=== PATIENT | female | born 1940 | race Caucasian/White ===

== ENCOUNTER 2016-11-01 18:09 | Inpatient (IN) | payer MEDICARE ==
[~2016-11-01] VITALS: Ht 154.9 cm; Wt 61.6 kg
[2016-11-01] MEDS ORDERED: FUROSEMIDE 40 MG/4 ML VIAL (J1940) IV ONE (18:30)
[2016-11-01] MEDS ORDERED: INDA125TA PO (18:40)
[2016-11-01] MEDS ORDERED: LOSA100T36 PO (18:40)
[2016-11-01] MEDS ORDERED: ATEN50TA2 PO (18:40)
[2016-11-01] MEDS ORDERED: DOXY-278 PO (18:43)
[2016-11-01] MEDS ORDERED: LASI40TA PO (18:43)
[2016-11-01] MEDS ORDERED: SIMV40TA2 PO (18:43)
[2016-11-01] MEDS: METOPROLOL 5 MG/5 ML VIAL IV SCH ×2 (18:54→19:35)
[2016-11-01] MEDS ORDERED: METOPROLOL TART 25 MG TABLET PO ONE (19:00)
[2016-11-01 19:31] LABS: ABG BASE EXCESS -7.7 (-2.0-2.0); ABG HCO3 17.8 MEQ/L (22.0-26.0); ABG PARTIAL PRESSURE CO2 36.7 mmHg (35.0-45.0); ABG PARTIAL PRESSURE O2 87.5 mmHg (75.0-100.0); ABG STANDARD HCO3 18.4 MEQ/L (22.0-26.0); ABG TOTAL CO2 18.9 MEQ/L (23.0-31.0); ABG pH (ARTERIAL) 7.303 UNITS (7.350-7.450)
[2016-11-01 19:59] LABS: DIFF SLIDE NUMBER 131; MEAN CORPUSCULAR HEMOGLOBIN 31.4 pg (27.0-33.0); MEAN CORPUSCULAR HGB CONC 30.7 g/dl (32.0-36.5); RED CELL DISTRIBUTION WIDTH 15.7 % (11.5-14.5)
[2016-11-01 20:06] LABS: INR 2.9
[2016-11-01 20:20] LABS: ALBUMIN 3.4 GM/DL (3.2-5.2); ALBUMIN/GLOBULIN RATIO 1.1 (1.00-1.93); BILIRUBIN,DIRECT 1.9 MG/DL (0.0-0.2); BILIRUBIN,TOTAL 2.9 MG/DL (0.2-1.0); CREATININE FOR GFR 2.23 MG/DL (0.55-1.02); GLOMERULAR FILTRATION RATE 22.7 (>39); TOTAL PROTEIN 6.5 GM/DL (6.4-8.2)
[2016-11-01 20:32] LABS: FREE T4 1.53 NG/DL (0.76-1.46)
--- NOTE | 2016-11-01 21:10 | REPUSA ---
CT of the head Clinical history: Altered mental status. Protocol: Multiple axial CT images obtained with 5 mm slice thickness were obtained through the head without administration of contrast. Findings: The ventricles and sulci are symmetric but prominent in size bilaterally. There are periven tricular areas of low attenuation throughout the deep white matter. There is no evidence of acute hem orrhage or infarct. There is no midline shift, mass effect, or extra-axial fluid collection. The osse ous structures are unremarkable. The visualized paranasal sinuses and mastoid air cells are clear. Impression: No acute hemorrhage or infarct. Findings are consistent with age-related atrophy and transit operator jacque small vessel ischemic disease.
--- NOTE | 2016-11-01 21:10 | REPUSA ---
CT of the chest without contrast Clinical statement: Shortness of breath. Technique: Multiple axial CT images were obtained with 5 mm cuts through the chest without administra tion of contrast. Coronal and sagittal reconstructions were also obtained. No comparison is available. Findings: There is no thoracic lymphadenopathy. The visualized portions of the thyroid gland is unrem arkable. There is a small pericardial effusion.. The heart is enlarged. There is a small right-sided pleural effusion with right lower lobe infiltrate. There is a trace left-sided pleural effusion. The re are infiltrates in the lingula of the left lung and superior segment of the left lower lobe. Limit ed imaging of the upper abdomen does not demonstrate any acute abnormalities. There are no suspicious osseous lesions. Impression: 1. Cardiomegaly with small pericardial effusion. 2. Small right lower lobe pleural effusion with right lower lobe infiltrate. 3. Infiltrates in the lingula of the left lung and the left lower lobe. Trace left-sided pleural effu francisco.
[2016-11-01] MEDS ORDERED: FUROSEMIDE 100 MG/10 ML VIAL (J1940) IV ONE (21:15)
--- NOTE | 2016-11-01 21:20 | REPUSA ---
CT of the abdomen and pelvis without contrast Clinical statement: Pain. Technique: Multiple axial CT images were obtained from the base of the lungs to the floor of the pelv is utilizing 5 mm axial slices without administration of contrast. Coronal and sagittal reconstructio ns were also obtained. Comparison: october. Findings: Chest: There are small bilateral pleural effusions and lower lobe infiltrates. Abdomen: The kidneys are normal in size bilaterally. There is no evidence of hydronephrosis or nephro lithiasis. The liver, spleen, pancreas, gallbladder and adrenal glands are unremarkable. The aorta de monstrates normal caliber and contour, with moderate diffuse atherosclerotic calcifications. There is a small amount of perihepatic ascites. There is no abdominal lymphadenopathy. Mild diffuse edema the soft tissues are noted. Pelvis: The bowel is unremarkable, with no obstructive or inflammatory changes. The urinary bladder i s within normal limits. There is no pelvic lymphadenopathy or ascites. The other pelvic structures ap pear unremarkable. Bones: There are no suspicious osseous abnormalities seen. Multilevel degenerative disc disease is no mikhail throughout the lower thoracic and lumbar spine. Impression: 1. No obstructive or inflammatory bowel changes. 2. No evidence of hydronephrosis or nephrolithiasis. 3. Trace perihepatic ascites. 4. Moderate diffuse atherosclerosis of the abdominal aorta without evidence of aneurysm. 5. Moderately severe spondylosis of the spine.
[2016-11-01 21:22] LABS: PLATELET COUNT, AUTOMATED 88 k/mm3 (150-450)
[2016-11-01 21:27] LABS: NUCLEATED RED BLOOD CELL 4 % (0-0)
[2016-11-01 21:30] LABS: PLATELET CLUMPS SMALL AMT
[2016-11-01 21:31] LABS: ANISOCYTOSIS 1+; POLYCHROMASIA 1+
[2016-11-01] MEDS ORDERED: VANCOMYCIN HCL 750 MG, VIAL MATE ADAPTER 1 EACH in D5W 250 ML IV ONE (21:45)
[2016-11-01] MEDS ORDERED: MEROPENEM INJ 500 MG in D5W MINI-BAG PLUS 100 ML IV ONE (21:45)
[2016-11-01] MEDS ORDERED: K-TA1TAB PO (22:18)
[2016-11-01] MEDS ORDERED: ACETAMINOPHEN TAB 650MG DOSE (2X325MG) PO PRN (23:00)
[2016-11-01] MEDS ORDERED: BISACODYL 5 MG TAB PO PRN (23:00)
[2016-11-01] MEDS ORDERED: ONDANSETRON 4MG/2ML VIAL (J2405) IV PRN (23:00)
[2016-11-01] MEDS ORDERED: DIGOXIN INJ 0.5 MG/2 ML AMP (J1160) IV STA (23:03)
[2016-11-01] MEDS ORDERED: PHYTONADIONE INJection 10 MG in NS 50 ML IV ONE (23:15)
[2016-11-01] MEDS ORDERED: D5W/0.9% SODIUM CHLORIDE 1,000 ML IV SCH (23:15)
[2016-11-02] VITALS (29 sets, daily range): BP systolic 83–143; BP diastolic 50–90; O2SAT 91
[2016-11-02] MEDS ORDERED: DIGOXIN INJ 0.5 MG/2 ML AMP (J1160) IV STA (00:34)
[2016-11-02] MEDS: PIPERACILLIN/TAZOBACTAM SOD 3.375 GM in D5W MINI-BAG PLUS 50 ML IV SCH ×4 (00:58→23:22)
[2016-11-02] MEDS ORDERED: SODIUM CHLORIDE 0.9% 1000 ML IV ONE (01:00)
[2016-11-02] MEDS ORDERED: METOPROLOL 5 MG/5 ML VIAL IV PRN (01:00)
[2016-11-02] MEDS ORDERED: PHYTONADIONE 10MG/ML INJECTION (J3430) As Ordered ONE (01:27)
[2016-11-02] MEDS ORDERED: VANCOMYCIN INTERMITTENT/PULSE DOSING BY CLINICAL PHARMACIST PER DOSING PROTOCOL XX SCH (02:00)
[2016-11-02] MEDS: METOPROLOL 5 MG/5 ML VIAL IV SCH ×4 (02:05→22:00)
[2016-11-02] MEDS ORDERED: MEROPENEM 1 GM VIAL (J2185) As Ordered ONE (02:09)
[2016-11-02] MEDS ORDERED: FUROSEMIDE 100 MG/10 ML VIAL (J1940) IV SCH (03:00)
--- NOTE | 2016-11-02 04:23 | HPE ---
DATE OF ADMISSION: 11/01/2016 PRIMARY CARE PROVIDER: Dr. Dodson. CODE STATUS: FULL CODE. CHIEF COMPLAINT: Metabolic encephalopathy and hematochezia. HISTORY OF PRESENT ILLNESS: Ms. Turcios is a 76-year-old female with multiple past medical history, who presented to emergency room (ER) due to experiencing metabolic encephalopathy, as well as hematochezia. At the time of presentation, patient was accompanied by her younger son, (Tee Turcios ), who expressed that he lives in [place]. Yesterday, when he called her, the patient mentioned one episode of weakness of her lower extremities when she was walking toward her car. She tried to go back upstairs; however, due to lower extremity weakness, she "crawled" up to her elevated. Son expressed that he came today to check on his mother. Upon his arrival he found her more tired than usual and sitting close to the bathroom due to frequently using bathroom. He noticed that patient used the bathroom several times and on one of the episodes he noticed stool with spots of blood. Patient became more lethargic throughout the day and that was the time that he called the emergency medical advisor (EMT) . At ER patient had 2 episodes of hematochezia and continue to have blood per rectum. Unfortunately, due to patient being lethargic, more detailed history cannot be obtained. HOME MEDICATIONS: - atenolol 50 mg by mouth daily - Lasix 40 mg by mouth daily - indapamide 1.25 mg by mouth daily - losartan 100 mg by mouth daily - K-Tab 20 mg by mouth daily - simvastatin 40 mg by mouth daily ALLERGIES: No known drug allergies. PAST MEDICAL HISTORY: Due to patient being lethargic, I cannot fully evaluate her past medical history; however, based upon her son's understanding patient has: 1. Congestive heart failure (CHF) with unknown etiology. 2. Coronary artery disease. 3. Hypertension. 4. Hyperlipidemia. 5. Chronic obstructive pulmonary disease (COPD). PAST SURGICAL HISTORY: 1. Carotid endarterectomy. 2. Dilation and curettage. SOCIAL HISTORY: According to patient's son, patient started smoking at age 17, about a pack a day. Patient dranks one can of beer daily; however, patient does not have illicit drug use history. Patient lives alone and has no nursing visits. Patient has no pets. 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 FAMILY HISTORY: Patient has two brothers and one sister.she also has two sons who are healthy. Patient's father due to congestive heart failure when he was in his 80s. Patient's mother due to colon cancer and congestive heart failure when she was in her 80s. REVIEW OF SYSTEMS: Cannot be obtained due to patient being lethargic. PHYSICAL EXAMINATION: VITAL SIGNS: Temperature 96.6, pulse 162, respiratory rate 24, blood pressure 131/95, pulse oximetry 92 on 2 liters nasal cannula. GENERAL APPEARANCE: Patient is lethargic and hallucination; however, patient responsive to vocal stimulus. HEENT: Normocephalic, atraumatic. Pupils are equal and reactive to light. Oral mucosa is dry. NECK: Soft, supple, no JVD was appreciated HEART: irregular irregular ABDOMEN: Soft, mild tenderness with palpitation, no hepatomegaly, positive bowel sounds in all quadrants. LUNGS: Patient has fine exhale and inhale wheezing as well as scattered rhonchi at the base of her lung bilaterally. EXTREMITIES: Patient has lower extremity edema bilaterally and cyanosis. Pulse cannot be evaluated in both lower extremities. The strength of her upper and lower extremities cannot be evaluated due to patient altered mental status. NEUROLOGICAL: Cannot be obtained due to patient altered mental status. LABORATORY DATA: White blood cells 16, red blood cells 5.38, hemoglobin 16.9, hematocrit 54.9, MCV 102, MCH 31.4, MCHC 30.7, RDW 15.7, platelet count 88. Neutrophil percentage 93, lymphocyte percentage 3, monocyte percentage 4, nucleated red blood cells 4, platelet estimate decreased, clumped platelets small, polychromasia 1+, basophilic stippling 1+, anisocytosis 1+, macrocytosis 2+. Sodium 141, potassium 4, chloride 103, carbon dioxide 20, anion gap 18, BUN 69, creatinine 2.23, glomerular filtration rate 22.7, fasting glucose 79, calcium 9, total bilirubin 2.9, direct bilirubin 1.9, AST 164, ALT 55, alkaline phosphatase 110, total creatinine kinase 2150, CK-MB 62.4, CK-MB relative index 2.9, troponin I 2.86, C-reactive protein 5.93, BNP 3480, total protein 6.5, albumin 3.4, lipase 46, TSH 3.22, free T4 1.53. ABG bicarbonate standard 18.4, ABG pH 7.303, ABG pCO2 36.7, ABG pO2 87.5, ABG HCO3 17.8, ABG total CO2 18.9, ABG oxygen saturation 95.1, ABG base excess -7.7. Urinalysis: Urine color yellow, urine appearance hazy, urine pH 5, urine specific gravity 1.011, urine protein negative, urine glucose negative, urine ketones negative, urine blood 3+, urine nitrites negative, urine bilirubin negative, urine urobilinogen 0.2, urine leukocyte esterase negative, urine white blood cells 0, urine red blood cells 0, urine hyaline casts 89, urine bacteria negative, urine squamous epithelial 1, amorphous sediment small. Blood culture is pending at this time. EKG shows atrial fibrillation, tachycardia with rapid ventricular response. Patient possibly has septal myocardial infarction ischemia IMAGING TECHNIQUE: Chest x-ray is pending. Head CT without contrast shows no acute hemorrhage or infarct; however, finding consistent with age-related atrophy and chronic small vessel ischemic disease. CT abdomen and pelvis without contrast shows no obstructive or inflammatory bowel changes. No evidence of hydronephrosis or nephrolithiasis. There is a trace of perihepatic ascites, moderate diffuse atherosclerosis of the abdominal aorta without evidence of aneurysm. There is moderately severe spondylosis of the spine. Chest CT without contrast shows cardiomegaly with a small pericardial effusion, small right lower lobe pleural effusion with right lower lobe infiltrates. In the lingula of the left lung and left lower lobe, trace left side pleural effusion. ASSESSMENT AND PLAN: 1. Sepsis: patient qSOFA score indicated high risk for sepsis. this is possible due to pneumonia vs UTI however UA was negative. blood culture has collected. At emergency room (ER), patient received one dose of vancomycin and meropenem; however, at this time, I have started patient on Vanco and Zosyn with renal dosing secondary to renal failure. 2. Metabolic encephalopathy. This is possibly multifactorial including sepsis, metabolic acidosis secondary to sepsis vs. acute renal failure, electrolyte abnormality secondary to medications and congestive hepatopathy as well as alcohol. I have ordered ammonia and alcohol level and the results are pending. 3. Tachycardia: EKG indicated Atrial fibrillation with rapid ventricular response. At ER, patient received two doses of metoprolol 5 mg intravenously (IV) and 25 mg of Lopressor by mouth. However, patient continued to have tachycardia. I administered one dose of digoxin 0.25 mg and if the patient continues to have tachycardia, I will administrate another dose of digoxin. Dr. Morgan has been consulted. We are waiting for Dr. Morgan's further recommendations. 4. GI bleeding: At this point, we will continue monitoring hemoglobin and hematocrit every 6 hours. Unfortunately, we do not have information regarding patient's latest colonoscopy and EGD. Patient is NPO and on protonix and IV fluid. 5. Exacerbation of congestive heart failure. At this point, I do not know the etiology of her congestive heart failure. Patient has elevated BNP. Patient does not have recent echocardiogram. Therefore, I have ordered echocardiogram and the result is pending at this time. At ER, patient received a total of 120 mg of IV Lasix. I will hold the Lasix and start her on fluid restriction of 1700 mL per day. 6. Acute kidney injury (CHRIS). I do not have information regarding patient's renal baseline. This is possibly secondary to exacerbation of congestive heart failure versus medications. Imaging did not show any abnormal renal pathology including obstructions or hydronephrosis. At home, patient is on her losartan, furosemide, which I have stopped them. Patient is on IV fluid due to sepsis and NPO due to GI bleeding. 7. Transaminitis. This is possibly secondary to sepsis versus alcohol usage. The patient is on simvastatin; however I will hold this medication until patient 's transaminitis resolves. Also I have ordered alcohol level and ammonia and the results are pending at this time 8. Elevated troponin I. This could be secondary to ischemia versus exacerbation of congestive heart failure and hypervolemia vs CHRIS. EKG indicated ST depression on several leads including V3 and V4 however patient is asymptomatic. Cardiac markers have been ordered and the results are pending. 9. Deep venous thrombosis (DVT) prophylaxis. Patient's platelets are below 100k/mm2. No DVT prophylaxis required at this time. 10. Polycythemia: this is possibly secondary to COPD. we will follow her H&H level due to GI bleeding. 11. COPD: patient has been seen by recorder helper gravity prospecting however we do not have more information regarding her COPD stage. I have start patient on oxygen with sat of 88-92%. According to the her home medication's list that we currently have, no breathing treatment listed. I would like to start the patient on breathing treatment however due to being lethargic I will hold. No steroid indicated due to GI bleeding. My preceptor for this patient encounter was Dr. Nicole Espinal. The preceptor was physically present in the building during the encounter and was fully available as needed. All aspects of the patient interview, examination, medical decision making process, and medical care plan development were reviewed and approved by the preceptor. The preceptor is aware and concurs with the plan as stated in the body of this note and will attest to such by his/her co-signature. CHRISTI
--- NOTE | 2016-11-02 06:14 | PHACANCOPD ---
PHARMACY VANCOMYCIN DOSING Pt Demographics Demographics Patient Age:76 , Weight:56.690 , Gender: female Adjusted Body Weight 56.7Date: 11/02/16, Adjusted Body Weight: [56.7] Kg(ACTUAL WT) Vancomycin Vancomycin indication: SEPSIS Vancomycin Target Ranges: 15-20 mcg/ml Vancomycin Load Y/N: No Load Dose Date Time Vancomycin Load Dose: Date: Time: Vancomycin Dose Date: 11/02/16. Current Vancomycin Dose: [750MG Q24H] Intermittent Dosing?: No Labs Labs Laboratory Tests 11/01/16 19:49 Red Blood Count 5.38, Mean Corpuscular Volume 102.0 H, Mean Corpuscular Hemoglobin 31.4, Mean Corpuscular Hemoglobin Concent 30.7 L, Red Cell Distribution Width 15.7 H 11/02/16 00:34 Micro Microbiology 11/01/16 Blood Culture, Received Pending 11/01/16 Blood Culture, Received Pending Creatinine Clearance Date:11/02/16. Creatinine Clearance: [18.9]CALCULATED. Pending Labs Vancomycin trough for 11/03@1999 Assessment and Plan Maintaining Current Dose?: Yes Reason for dose change: No Dose Change Pharmacist Note Pharmacist Note Date: 11/02/16. Pharmacist note:Covering for possible sepsis with pip/tazo 3.375 q8h + Vancomycin per consult.patient scr=2.23 on 11/01(calculated CRCL=18.9)NKDA: 750mg administered x1 in ED@2245 om 11/01-will continue this dose Q24H for now and order first trough for thursday(11/03)at 2000: will continue to follow labs and levels [facility] November 02, 2016 06:14
[2016-11-02] MEDS ORDERED: LACTULOSE 20 GM/30 ML SYRUP UD PR ONE ×2 (07:00→07:30)
[2016-11-02 07:26] LABS: DIFF SLIDE NUMBER 47; MEAN CORPUSCULAR HEMOGLOBIN 32.3 pg (27.0-33.0); MEAN CORPUSCULAR HGB CONC 31.2 g/dl (32.0-36.5); MEAN CORPUSCULAR VOLUME 103.7 fl (80.0-96.0); RED CELL DISTRIBUTION WIDTH 15.3 % (11.5-14.5); WHITE BLOOD COUNT 18.8 K/mm3 (4.0-10.0)
[2016-11-02 07:33] LABS: ALBUMIN 2.7 GM/DL (3.2-5.2); BILIRUBIN,TOTAL 2.4 MG/DL (0.2-1.0); CALCIUM LEVEL 7.5 MG/DL (8.8-10.2); CREATININE FOR GFR 2.19 MG/DL (0.55-1.02); GLOMERULAR FILTRATION RATE 23.2 (>39); MAGNESIUM LEVEL 1.7 MG/DL (1.8-2.4); POTASSIUM SERUM 3.9 MEQ/L (3.5-5.1); TOTAL PROTEIN 5.4 GM/DL (6.4-8.2)
[2016-11-02] MEDS ORDERED: MAG SULF 1GM/100ML (MAG RUN) 1 GM in APPROPRIATE DILUENT 1 EA IV ONE (08:15)
[2016-11-02] MEDS ORDERED: GLUCOSE 4 GM CHEW TABLET PO PRN (08:15)
[2016-11-02] MEDS ORDERED: GLUCAGON FOR INJ 1 MG VIAL (J1610) SC PRN (08:15)
[2016-11-02] MEDS ORDERED: DEXTROSE 50% 50 ML SYRINGE IV PRN (08:15)
[2016-11-02 08:36] LABS: PLATELET COUNT, AUTOMATED 81 k/mm3 (150-450)
[2016-11-02 08:40] LABS: BANDS 2 % (< 11); POLYCHROMASIA 1+
[2016-11-02 08:41] LABS: ANISOCYTOSIS 2+; TOXIC VACUOLATION 1+
[2016-11-02] MEDS: POTASSIUM CHLORIDE 10 MEQ SR TABLET PO SCH ×2 (09:00→09:45)
[2016-11-02] MEDS: CHLORHEXIDINE GLUCONATE 0.12 % 15ML UDC (PERIDEX ORAL RINSE) MT SCH ×2 (09:45→20:35)
--- NOTE | 2016-11-02 10:03 | REP ---
PORTABLE CHEST: HISTORY: Dyspnea. COMPARISON: Yesterday. The technique utilized in obtaining the radiograph has magnified the cardiac silhouette and accentuated the interstitial markings. A new patchy opacity has developed in the left upper and lower lobe regions and probably within the lingula, however, the examination was performed supine with the patient tilted to the left accentuating all findings. There is no change in the right lung. There is global cardiomegaly. There is no significant change in the appearance of the osseous structures. IMPRESSION: Limited exam as described above, however, a new opacity is suspected in the left upper lobe and lingula, possibly from pneumonia. This needs to be correlated clinically with appropriate followup. Signed by Larry Rodriguez DO 11/02/2016 10:24 A
[2016-11-02] MEDS ORDERED: DIGOXIN INJ 0.5 MG/2 ML AMP (J1160) IV ONE (11:15)
[2016-11-02] MEDS ORDERED: IPRATROPIUM 0.02% SOLN 0.5MG/2.5 ML NEB INH PRN (11:15)
[2016-11-02] MEDS ORDERED: LEVALBUTEROL 1.25 MG/0.5 ML CONCENTRATE NEB INH PRN (11:15)
[2016-11-02] MEDS: PANTOPRAZOLE 40MG INJ (PROTONIX) (C9113) IV SCH ×2 (11:41→20:35)
--- NOTE | 2016-11-02 11:54 | REP ---
BILATERAL LOWER EXTREMITY ULTRASOUND: TECHNIQUE: Multiple ultrasonographic images of the deep venous structures of the bilateral thighs were obtained from the common femoral vein to the popliteal vein along with Doppler interrogation and color flow Doppler images. FINDINGS: There is no abnormal echogenic material seen within any of the visualized deep venous structures that would suggest acute thrombosis. Coaptation is unremarkable throughout. Doppler interrogation shows an expected response to respiratory variability and augmentation. The color flow images show what appears to be a normal vascular pattern throughout. IMPRESSION: There is no ultrasonographic evidence of deep venous thrombosis involving any of the visualized deep venous structures of the bilateral thighs, as described above. Signed by Larry Rodriguez DO 11/02/2016 01:32 P
[2016-11-02] MEDS: LEVALBUTEROL 1.25 MG/0.5 ML CONCENTRATE NEB INH SCH ×3 (12:00→21:09)
[2016-11-02] MEDS: IPRATROPIUM 0.02% SOLN 0.5MG/2.5 ML NEB INH SCH ×3 (12:00→21:08)
--- NOTE | 2016-11-02 12:33 | CR ---
DATE: 11/02/2016 REFERRING PHYSICIAN: Dr. Davila HISTORY OF PRESENT ILLNESS: Mrs. Turcios is a 76-year-old female who was brought to the hospital by her sons yesterday because of confusion and agitation. She is a 76-year-old female who is followed by Dr. 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 She was in her usual status of health until approximately 2 or 3 days ago when of the sons called her from [place]. She appeared confused on the phone and consequently they called services to check on her. Supposedly there was no abnormality, but because the sons were suspicious that something was not right, they decided to come and see the mother. On their arrival, they found her confused, she was on the floor. She then went to the bathroom and was apparently in the bathroom for 4 hours, and they could not convince her to leave. There was some blood in her stools and then she became agitated and was brought to the emergency room (ER) for further evaluation. On the evaluation, she was found to be in atrial fibrillation with rapid ventricular response in 150s to 170s. She was somewhat hypoxic and agitated. The CT scan of the head did not reveal any hemorrhage. ECG did confirm atrial fibrillation and chest x-ray revealed cardiomegaly and mostly left-sided effusion and probably bilateral infiltrates, even though they are not very prominent. Further evaluation revealed very high INR at 3.0. There was a very high ammonia level 130 and also very high CK and troponin. She was admitted with tentative diagnosis of hepatic encephalopathy with concomitant numerous other problems, acute renal failure, atrial fibrillation with rapid ventricular response and elevated troponin. Her heart rate was slowed down with administration of initially IV and then oral metoprolol. I was called about 1 o'clock in the morning when she became tachycardiac again. Dr. Davila at this point had given her 0.25 mg of digoxin IV and because she was not able to take by mouth safely, we gave her another 0.25 mg of IV digoxin plus 5 mg IV every 2 hours as needed of metoprolol. Her heart rate has improved and this morning she is in the 100s. The patient is arousable but somnolent, and she is clearly not oriented. Most of the information obtained was from her sons. She has not had any recent encounters in [facility], so we could not get any useful information from her records. PAST MEDICAL HISTORY: 1. Congestive heart failure (CHF). 2. Atrial fibrillation. 3. Aortic stenosis. 4. Chronic obstructive pulmonary disease (COPD). 5. Hyperlipidemia. 6. Pulmonary nodules - possible Ca. Reportedly patient refused biopsy. OUTPATIENT MEDICATIONS: Obtained from the pharmacy: Potassium 20 mEq daily, doxycycline prescribed on 10/23/2016 for suspicion for cellulitis, indapamide 1.25 mg a day, atenolol 50 mg a day, losartan 100 mg a day. Prednisone 50 mg a day was prescribed in March 2016 and she probably does not take it anymore. HCTZ remote prescription and rosuvastatin remote prescription, and simvastatin 40 mg is current. SOCIAL HISTORY: The patient is a . She lives alone. She used to work in [employer] profession. She has been a smoker for most of her adult life. She smoked as many as three packs a day, lately apparently less than one pack a day. There is also a history of heavy alcohol use. To the best of her sons knowledge , she has not been drinking much lately, but typically would have at least one beer a day. FAMILY HISTORY: One of her sons has coronary artery disease in young age. There apparently are additional family members with early vascular disease. 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 REVIEW OF SYSTEMS: Again, mostly obtained from her sons. There is no history of stroke that they are aware of. She has no history of heart attack. They are not sure whether the atrial fibrillation is new or old. There is no recent fever or chills that they are aware of. No diarrhea. There is no history of gastrointestinal (GI) bleeding other than current ones. She has had problems with peripheral edema. She is able to perform ADL's at her baseline. The rest I am unable to obtain. PHYSICAL EXAMINATION: Mrs. Turcios is an elderly female who appears approximately her age. She is in intensive care unit (ICU) bed. She is somnolent but arousable, but not appropriate and unable to provide any history. Vital signs: Blood pressure 120/54, heart rate is in low 100s. She is afebrile. Saturation is 95% on 4 liters of oxygen by nasal cannula. Fluid balance since admission is slightly negative at 300 mL She made about a liter of urine since midnight. Weight is documented 68.5 kg. Her jugular venous pressure (JVP) is difficult to estimate, but does not appear grossly elevated by my exam. Lungs: Reveal fairly clear lung sounds. I do not appreciate any crackles, but the air movement is poor and there is no cooperation. Heart exam reveals irregular tachycardia. There is a systolic ejection murmur heard throughout the whole precordium, about 2 or 3 out of 6. Abdomen: She has painful responses to palpation throughout. No obvious guarding though. I am unable to estimate the size of liver or spleen and her bowel sounds are relatively diminished. Extremities have mottled appearance. There is cyanosis of both feet. I am unable to palpate her peripheral pulses (not detected even with Doppler monitor) . Neurologically, she is intermittently somnolent and agitated, but she moves all four extremities. There is no apparent flaccidity. Her speech is incoherent but pronunciation is fairly clear. LABORATORY: As of this morning, CBC reveals WBC count 18.8, hemoglobin 17.2, hematocrit 55 and platelet count 81,000. These numbers are similar from yesterday. Basic metabolic panel: Potassium 3.9, sodium 140, BUN 75, creatinine 2.2 for GFR 23 and glucose 149, lactic acid initially was 6.8. The second one is 2.4. Magnesium 1.7, calcium 7.5, elevated liver function tests, bilirubin 2.4, AST 315, ALT 80, ammonia level initially was 130. The subsequent one is down to 56. Total CK is 7000 with relative index 2.1. Her initial troponin was 2.86 and the last one was 5.6. The trend is still going up. BNP 3200, albumin 2.7. INR on admission 2.0. She received 10 mg of vitamin K, 3 this morning. Alcohol level was undetectable. Urine was negative for protein, glucose and ketones but positive for blood. ECG reveals atrial fibrillation with rapid ventricular response, suggestive of left ventricular hypertrophy (LVH), but no clear-cut ischemic abnormalities. On imaging, the chest x-ray does indicate cardiomegaly and pleural effusion, more prominent on the left side. Cannot rule out underlying infiltrate. She had imaging of the abdomen which revealed small amount of ascites but no hydronephrosis and no obvious structural abnormalities of liver or spleen were described. CT of the chest revealed cardiomegaly, small effusion, small right lower lobe infiltrate with surrounding effusion and left lower lobe infiltrate with trace effusion as well. ASSESSMENT AND PLAN: Mrs. Turcios is certainly critically ill. She has multiorgan involvement. My role is to assist with management of cardiac issues. She has atrial fibrillation, which in my opinion is likely chronic. She had a bedside echocardiogram, which revealed severe enlargement of both atria, which would be consistent with chronicity of the process. At this point, I do not believe that there is any hope for any invasive treatment. Consequently, I would focus on rate control. She received 0.5 mg of digoxin. I am going to give her an additional 0.25 mg IV , and we will use of metoprolol IV as needed to accomplish control if she becomes tachycardiac again. She is spontaneously anticoagulated with therapeutic INR, and there is very significant thrombocytopenia and consequently I am not going to administer any blood thinners. As far as the troponin elevation is concerned, she has grossly preserved left ventricular (LV) systolic function based on echocardiogram, and I suspect this is a result of her tachycardia. I do not doubt that she has underlying coronary artery disease, but considering her overall condition, I do not believe that there is any question that she is not a candidate for coronary intervention at this time. The next vascular issue is that of very likely peripheral vascular disease. She has mottled lower extremities, I have trouble detecting her pulses, and she has very high CK, that is all of worrisome for possibility of critical lower extremity ischemia. Unfortunately, again, due to her overall condition, I do not believe that there is much hope for consideration of peripheral intervention. We will monitor CK levels, but, again, I am skeptical about any invasive therapies due to her multiorgan failure. The next issue is that of elevated INR, very high ammonia. It is very likely she has underlying liver cirrhosis. I obtained a history from her sons that she used to be a heavy drinker and even though she has not been drinking as heavily recently, she still has alcohol on a daily basis. This is quite suspicious. Hopefully her INR will improve after administering vitamin K and her ammonia level has been coming down even though her encephalopathy is not improving much as yet. Lactulose will be used. The next issue is that of renal failure. It is likely a combination of the congestive heart failure and atrial fibrillation with rapid ventricular response , and I cannot rule out that there is a component of infection as well. She had a CT of the abdomen and consequently, we do know that she is not obstructed. As far as respiratory issues are concewrned, according to her sons, she has advanced COPD. She smoked for the most part at least two packs a day, occasional three packs a day, and even though lately she has not been smoking very much, she continues to smoke. She apparently was seen by pulmonary group here in [place], and it is the sons understanding that she has bilateral pulmonary nodules that are suspicious for malignancy. She reportedly refused possibility of biopsy. So far, she is only hypoxic, which probably explains the degree of elevated hemoglobin and consequently only oxygen will be provided. She does have fairly at least moderately severe pulmonary hypertension based on echocardiogram. Again, besides administration of oxygen, I do not foresee any specific interventions to improve the matter at least in the acute phase. I had a long discussion with her sons regarding her prognosis. I explained that even though many of her conditions can at least partially be reversible and there is a chance for stabilization, due to multiorgan involvement, her mortality is very high. She apparently has DO NOT INTUBATE (DNI)/DO NOT RESUSCITATE (DNR) order but only in case her disease is considered terminal. I explained to them that we do not know that for a fact and finally they agreed that will provide adequate supportive therapy at least for another day or two to see how her condition evolves. I spent 90 minutes reviewing the patient's chart, talking to the family, examining the patient and coordinating care with hospitalistWillem BARRAZA
--- NOTE | 2016-11-02 12:39 | ECHO ---
DATE OF PROCEDURE: 11/02/2016 REFERRING PHYSICIAN: Natasha Barrios MD INDICATION: Dyspnea, atrial fibrillation, congestive heart failure. LOCATION: ICU HEIGHT: 61 inches WEIGHT: 125 pounds. DIMENSIONS: IVS: 1.3 LV: 3.9 LVPW: 1.5 LA: 4.1 Aorta: 3.2 Ascending aorta: 3.4 RA: 3.9 FINDINGS: The study is of good technical quality. Left ventricle is normal size and normal systolic function with estimated ejection fraction (EF) around 65-70%. Mild to moderate left ventricular hypertrophy (LVH) is noted. I do not appreciate any segmental wall motion abnormalities. Right ventricle is dilated and hypokinetic. Both atria are severely enlarged. Aortic valve is tricuspid. It has heavy calcifications and some restriction of leaflet mobility. Mitral valve also exhibits prominent degenerative abnormalities with very significant mitral annular calcifications. Tricuspid valve is normal. Pulmonic valve also appears normal. Small mostly inferiorly located pericardial effusion is noted. Inferior vena cava is markedly dilated and without appreciable collapse with respiration, indicative of very high central venous pressure. Aortic root is normal. Aortic arch and abdominal aorta were not well seen. Doppler interrogation of aortic valve reveals mild insufficiency and probably moderate stenosis (peak gradient 53, mean gradient 27 and calculated JESUS 1.1 cm2). Mild mitral insufficiency and moderate tricuspid insufficiency. Calculated pulmonary artery pressure is at least in 90s corresponding to severe pulmonary hypertension. Pulmonic valve exhibits mild insufficiency. Evaluation of diastolic function is inconclusive. It seems likely that the patient is principally in atrial fibrillation. CONCLUSIONS: 1. Study is of good technical quality. 2. Normal left ventricle (LV) size and systolic function. 3. Moderate aortic stenosis. 4. Mild mitral insufficiency. 5. Moderate tricuspid insufficiency. 6. Severe pulmonary hypertension. 7. Severe biatrial enlargement. 8. High central venous pressure. 9. Small noncompressive pericardial effusion. COMMENT: Subacute bacterial endocarditis (SBE) prophylaxis is not recommended.
[2016-11-02] MEDS ORDERED: FUROSEMIDE 100 MG/10 ML VIAL (J1940) IV ONE (14:30)
--- NOTE | 2016-11-02 14:45 | ECGEPIP ---
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
--- NOTE | 2016-11-02 18:10 | IPN ---
DATE: 11/02/2016 Patient seen and examined at the bedside. Chart has been reviewed. Patient is awake, alert, oriented to person only. She is belligerent at the bedside, has mitts on. She selectively follows commands. She remains in atrial fibrillation with a ventricular rate of 82-134. Blood pressure is maintained at 120-183. Patient has had one bowel movement, 200 mL of maroon-colored blood. Denies any hematemesis. No abdominal pain. No chest pain, pressure, tightness, or shortness of breath. No complaints of palpitations, lightheadedness, or dizziness. Temperature 98.7, pulse 106, respiratory rate 24, blood pressure 120/54, 95% on 4 liters nasal cannula. GENERALLY: Patient is awake, alert, oriented to person only, she is disoriented, selectively follows commands but with purposeful movements. Moans at the bedside and is belligerent with nurses and swinging at them when they talk to her. LUNGS: Crackles at the bilateral bases, occasional wheezing. HEART: S1, S2, irregularly irregular. ABDOMEN: Soft, nontender, nondistended. EXTREMITIES: Cool to touch bilaterally. 3+ edema to the sacrum. Purplish discoloration. LABORATORY DATA: White count 18, hemoglobin 17, hematocrit 55, platelet count 90, 2 bands. Sodium 140, potassium 3.9, chloride 103, bicarbonate 25, BUN 75, creatinine 2.1, glucose 149, lactic acid 2.4, calcium 7.5, magnesium 1.7, total bilirubin 2.4, AST 315, ALT 80, ammonia level 56, total CK 61, troponin 5.6. BNP 3290. INR of 3.0. IMAGING STUDY: Chest xray 11/02/2016, patchy infiltrates left upper and lower lobe. No change in the right lung. Possibly pneumonia. ASSESSMENT AND PLAN: This is a 76-year-old female with history of congestive heart failure (CHF), unknown etiology, coronary artery disease (CAD), hypertension, hyperlipidemia, chronic obstructive pulmonary disease (COPD), carotid endarterectomy, dilatation and curettage (D and C), on no anticoagulation, on chronic atenolol, Lasix, indapamide, losartan, K-Tab, and simvastatin, was brought into the emergency room due to confusion and hematochezia. Patient was found to have severe weakness bilateral lower extremities and was found at home crawling up to her second floor bathroom where she was found to have stool with positive blood. She became much more lethargic and was brought into the emergency room (ER) and was found to have an INR of 3.0 with thrombocytopenia, possible acute kidney injury, hepatic encephalopathy with ammonia level of 133. CURRENT ISSUES: Are as follows: 1. Sepsis, most likely secondary to possible pneumonia. Currently on vancomycin and Zosyn. Check lactic acid. Patient has received IV fluids, but currently on 4 liters nasal cannula with chronic edema lower extremities. 2. Atrial fibrillation with rapid ventricular response (RVR). Dr. Morgan has been consulted for rate management. Due to recent gastrointestinal (GI) bleed, no anticoagulation has been given. Patient's heart rate has ranged from 82-168, currently better controlled on metoprolol 5 mg as needed every 2 hours. 3. Gastrointestinal (GI) bleed. Currently on Protonix. Avoid anticoagulants. Appears to be coagulopathic from possible liver disease with history of heavy alcohol consumption. Patient has been given vitamin K. Protonix for now. [employer], Dr. Varner, has been consulted. 4. Fluid overload with acute kidney injury. Dr. Stallworth has been consulted for fluid management as patient is much more hypoxic, requiring 4 liters of oxygen, saturating at 85% on 5 liters and currently with lower extremity edema. 5. Polycythemia, most likely secondary to chronic obstructive pulmonary disease (COPD). Monitor with repeat complete blood counts (CBCs). Check 2D echo to check pulmonary hypertension. 6. Electrolyte abnormalities with low magnesium. Supplement. 7. Mild rhabdomyolysis. Patient had received IV fluids. However, in light of lower extremity edema, IV fluids have been discontinued. Defer to Dr. Stallworth for management of fluids. 8. Positive troponin. Rule out acute coronary syndrome. Defer to Dr. Morgan. Unable to provide anticoagulation due to active gastrointestinal (GI) bleed.
[2016-11-02 19:58] LABS: ALBUMIN 2.6 GM/DL (3.2-5.2); CALCIUM LEVEL 7.4 MG/DL (8.8-10.2); CREATININE FOR GFR 2.29 MG/DL (0.55-1.02); PHOSPHORUS LEVEL 5.5 MG/DL (2.5-4.9); POTASSIUM SERUM 3.9 MEQ/L (3.5-5.1)
[2016-11-02] MEDS ORDERED: VANCOMYCIN HCL 750 MG, VIAL MATE ADAPTER 1 EACH in D5W 250 ML IV SCH (21:00)
[2016-11-03] VITALS (26 sets, daily range): BP systolic 86–175; BP diastolic 50–84; O2SAT 93
[2016-11-03] MEDS: IPRATROPIUM 0.02% SOLN 0.5MG/2.5 ML NEB INH SCH ×7 (01:12→23:27)
[2016-11-03] MEDS: LEVALBUTEROL 1.25 MG/0.5 ML CONCENTRATE NEB INH SCH ×7 (01:13→23:27)
[2016-11-03] MEDS: METOPROLOL 5 MG/5 ML VIAL IV SCH ×12 (02:00→22:00)
[2016-11-03] MEDS: PIPERACILLIN/TAZOBACTAM SOD 3.375 GM in D5W MINI-BAG PLUS 50 ML IV SCH ×3 (07:26→22:25)
--- NOTE | 2016-11-03 07:33 | CR ---
DATE OF CONSULTATION: 11/02/2016 CONSULTATION FOR: Natasha Barrios MD REASON FOR CONSULTATION: Acute renal failure in this lady with sepsis, acute myocardial infarction (TN), altered mentation and hepatic encephalopathy. HISTORY OF PRESENT ILLNESS: Mrs. Turcios is a 76-year-old female who was admitted to [facility] last evening via the emergency room as her family brought her due to confusion and agitation. The patient was found to be confused on arrival with high ammonia level of 130. She was also in atrial fibrillation with rapid ventricular rate and in acute renal failure. She is currently in the intensive care unit. A nephrology consultation was requested by Dr. Barrios this morning and the patient is seen in the intensive care unit. PAST MEDICAL AND SURGICAL HISTORY (Significant for): 1. History of atrial fibrillation. 2. History of aortic stenosis. 3. History of congestive heart failure. 4. History of chronic obstructive pulmonary disease (COPD). 5. History of hyperlipidemia. 6. History of pulmonary nodule, reportedly she has refused any workup. MEDICATIONS (Her home medications include): - potassium chloride 20 mEq daily - indapamide 1.25 mg daily - atenolol 50 mg daily - losartan 100 mg daily - simvastatin 40 mg daily - prednisone (without any details about it) PERSONAL AND SOCIAL HISTORY: The patient is and she lives alone. Her son checks on her who lives in [place] and the patient was found to be confused, due to with, her son decided to come and see her. She was quite confused and agitated, due to which, she was brought to the emergency room. FAMILY HISTORY: There is no family history for end-stage renal disease. There is family history for coronary artery disease. REVIEW OF SYSTEMS: At present, the patient is quite confused and not able to provide any information. I did have a chance to talk to her son and also reviewed her records. Apparently, there is no reported fever or chills. There is some reported blood in her stools, but no vomiting or diarrhea. At present, I am not certain about her alcohol use. She did have a very high ammonia level. She was also noticed to have a very high CPK and troponin with rapid atrial fibrillation. She has a Amezcua catheter currently which is draining clear brown urine. There is no other pertinent information available and the patient is unable to provide any reliable information. PHYSICAL EXAMINATION: Heart rate is about 110 per minute and respiratory rate 20 per minute. Temperature 98.5 degrees Fahrenheit and blood pressure about 110/50 mmHg. Head is atraumatic. I do not see any on oral thrush or ulcers; however, the patient is not very cooperative. Her pupils are equal and reactive to light and sclerae anicteric. Neck is supple and there is mild jugular venous distention (JVD). No thyroid enlargement. Heart sounds are tachycardiac and irregular. Lungs with slightly diminished breath sounds at bases bilaterally. There are few basilar rales. Abdomen is soft, but tender all over. Bowel sounds are present. I could not palpate any organomegaly. Extremities have cyanosis on her toes on both feet. There is also edema, but no clubbing. There is no cyanosis on her hands. Neurologically, she is confused, agitated, restless and disoriented. LABORATORY DATA: WBC count is 18.8, hemoglobin 17.2 and hematocrit 55.2. Platelets 81,000. Blood gas last evening showed a pH of 7.30, pCO2 36.7, pO2 87.5 and bicarb 18.4. Sodium 140 and potassium 3.9. BUN 75 and creatinine 2.19. CO2 25 and calcium 7.5. Magnesium level 1.7. Initial CPK was 6961 and troponin 5.60. A repeat CPK was up to 13,475 and troponin 6.81. Initial ammonia level was 130 and a repeat one came down to 56 and the most recent one is 30. CT scan done in the emergency room showed cardiomegaly with small pericardial effusion, small right lower lobe pleural effusion and infiltrate. Infiltrates also noticed in the lingula of left lung and left lower lobe. Abdomen and pelvis CAT scan was also done in the emergency room which did not show any acute bowel problems or hydronephrosis. PROBLEMS: 1. Acute renal failure. Etiology is uncertain at present. The patient has been in rapid atrial fibrillation and congestive heart failure which may have contributed to her acute kidney injury. She also has elevated CPK with possibility of rhabdomyolysis and acute TN. Her troponin is quite elevated. At present, we will not try to diurese her as her blood pressure is only borderline with rapid atrial fibrillation. She does not have any significant metabolic acidosis and electrolytes are acceptable. We will monitor her kidney function as the patient is oxygenating well and nonoliguric. 2. Congestive heart failure. She did have an echocardiogram done and she is in rapid atrial fibrillation at present. We will avoided diuresis for the next 24 hours and monitor her volume status and urine output. Her oral intake is nothing as she is nothing by mouth (n.p.o.). 3. Sepsis. She has infiltrates on chest x-ray and possibly she has pneumonia and sepsis. She is being treated with antibiotics. I would suggest to dose adjust for her renal function. We will also recommend to avoid any nephrotoxic medications if at all possible. She has received vancomycin and we will need to monitor the level of vancomycin. I discussed with the patient and son about her condition in detail and answered all their questions. I thank you for involving me in the care of Mrs. Turcios. I will follow her along with you.
[2016-11-03 07:44] LABS: DIFF SLIDE NUMBER 49; MEAN CORPUSCULAR HEMOGLOBIN 32.7 pg (27.0-33.0); MEAN CORPUSCULAR HGB CONC 31.7 g/dl (32.0-36.5); MEAN CORPUSCULAR VOLUME 103.1 fl (80.0-96.0)
[2016-11-03 07:50] LABS: INR 2.18
[2016-11-03 07:57] LABS: ABG BASE EXCESS -1.4 (-2.0-2.0); ABG HCO3 25.8 MEQ/L (22.0-26.0); ABG PARTIAL PRESSURE CO2 51.6 mmHg (35.0-45.0); ABG PARTIAL PRESSURE O2 78.2 mmHg (75.0-100.0); ABG STANDARD HCO3 23.3 MEQ/L (22.0-26.0); ABG TOTAL CO2 27.3 MEQ/L (23.0-31.0); ABG pH (ARTERIAL) 7.316 UNITS (7.350-7.450)
--- NOTE | 2016-11-03 07:58 | IPN ---
DATE: 11/03/2016 Mrs. Turcios remained in atrial fibrillation all night. Her heart rate was reasonably well-controlled, typically around 100-110 range. She has been able to maintain blood pressure, but unfortunately oxygenation deteriorated and currently she is on 8 liters of oxygen, saturating in the low 90s and her mental status deteriorated as well. Vital Signs: Blood pressure 105/54. Heart rate at around 100. The last temperature documented was 99.1, there was no documented fever as such. Saturation as above. Her fluid balance yesterday was about 1800 mL negative. She made about 2500 mL of urine. She has three bowel movements, all of which have a little bit of blood in them. Weight this morning is 61.1. She is lethargic. She would not open eyes to verbal or painful stimuli. Pupils are round and responsive. Her jugular venous pulse (JVP) does not look elevated on my exam. Lungs: Reveal very fair air movement. Fine crackles are present over both sides. I do not appreciate any wheezing. Heart: Exam reveals irregularly irregular rhythm. There is a murmur over the base, maybe 2/6 intensity. Abdomen is soft. No obvious guarding. Bowel sounds are diminished. There is still have not 1+ edema and her feet have mottled and cyanotic appearance and are colder to touch. LABORATORY DATA: Are all pending yet this morning. ASSESSMENT/PLAN: Mrs. Turcios is a very complex patient who has multiple issues going on. From a cardiac perspective, she has atrial fibrillation with rapid ventricular response (RVR) that is reasonably well-controlled and she also has troponin elevation, but with preserved LV systolic function by echocardiogram. ECG this morning is still pending. Unfortunately, as concomitant issues is acute renal failure, probably hepatic failure and resulting hepatic encephalopathy. Also, an issue with rhabdomyolysis. I am particularly concerned about her deteriorating respiratory and neurologic condition and I ordered a chest x-ray and ABGs. I will continue cardiac management unchanged, virtually limited to observation and rate control. Unfortunately, she is in no shape to consider undergoing any cardiac invasive procedure. I had a talk with her sons who are present at the bedside about decision making. They are healthcare proxy and she apparently expressed her desire to be DO NOT RESUSCITATE (DNR) if her condition is irreversible, but would like to be treated if there was hope for improvement. Ultimately, it will be their decision should she need resuscitative measures or intubation. They will consider the options. I would advocate to get the critical care attending involved in her case as she has multiorgan failure and I am afraid that possible respiratory support will be necessary soon.
[2016-11-03 08:05] LABS: PLATELET COUNT, AUTOMATED 49 k/mm3 (150-450)
[2016-11-03 08:07] LABS: NUCLEATED RED BLOOD CELL 3 % (0-0)
[2016-11-03 08:14] LABS: ALBUMIN 2.5 GM/DL (3.2-5.2); ALBUMIN/GLOBULIN RATIO 0.93 (1.00-1.93); BILIRUBIN,TOTAL 3.3 MG/DL (0.2-1.0); CALCIUM LEVEL 7.3 MG/DL (8.8-10.2); CREATININE FOR GFR 2.63 MG/DL (0.55-1.02); GLOMERULAR FILTRATION RATE 18.8 (>39); MAGNESIUM LEVEL 2.2 MG/DL (1.8-2.4); POTASSIUM SERUM 4.2 MEQ/L (3.5-5.1); TOTAL PROTEIN 5.2 GM/DL (6.4-8.2)
[2016-11-03] MEDS: POTASSIUM CHLORIDE 10 MEQ SR TABLET PO SCH (08:29)
[2016-11-03] MEDS: CHLORHEXIDINE GLUCONATE 0.12 % 15ML UDC (PERIDEX ORAL RINSE) MT SCH ×2 (09:23→20:32)
[2016-11-03] MEDS: PANTOPRAZOLE 40MG INJ (PROTONIX) (C9113) IV SCH ×2 (09:23→20:32)
--- NOTE | 2016-11-03 09:24 | REP ---
PORTABLE CHEST: AP portable view of the chest is performed and compared to a prior study of 11/02/2016. The heart appears enlarged. The right lung opacities are unchanged. There are diffuse left lung opacities which may be slightly improved superiorly. IMPRESSION: No change in right lung opacities. Diffuse left lung opacities may be slightly improved superiorly. Signed by Trevor Larsen MD 11/04/2016 04:00 P
--- NOTE | 2016-11-03 12:31 | IPN ---
DATE: 11/03/2016 OBJECTIVE: Ms. Turcios was seen this morning at bedside in the ICU. Mentation has apparently deteriorated as the patient is not even opening her eyes to sternal rubbing. She does however flail her arms with sternal rubbing. She currently has mits on her hands secondary to agitation. She is not able to answer any questions. Her heart rate has been between 90-120. Oxygenation has decreased and she is now currently requiring 8 liters of nasal cannula. PHYSICAL EXAMINATION: Vital signs: Temperature 97.6, pulse 109, respiratory rate 26, blood pressure 113/73, pulse ox 92% on 8 liters high-flow. General: The patient is not alert and is not responding to questioning. HEENT: Normocephalic and atraumatic. No scleral icterus. Pupils are round and reactive to light. Neck: Supple. No cervical lymphadenopathy. No thyromegaly. No significant jugular venous distension appreciated. Heart: Irregularly irregular. Tachycardiac. Positive for systolic ejection murmur. Lungs: Fair air movement bilaterally. No rhonchi or wheezing appreciated. Abdomen: Soft. She did grimace with deep palpation of the lower abdomen. Bowel sounds are present. Extremities: Positive for pitting edema and cyanotic feet. Feet are cold to touch. Neurologic: Patient mentation is diminished and she is not responding to questions. LABORATORY DATA: WBC 19.0, hemoglobin 17.9, hematocrit 56.4, platelet count 49. Sodium 144, potassium 4.2, chloride 104, carbon dioxide 26, anion gap 14, BUN 89, creatinine 2.6, GFR 18.8, fasting glucose 96, calcium 7.3, magnesium 2.2, total bilirubin 3.3, AST 750, ALT 161, alkaline phosphatase 84, ammonia 29, total creatinine kinase 13,290, troponin 7.2, total protein 5.20, albumin 2.5. ABG showed a pH of 7.32, pCO2 51.6, pO2 78.2, HCO3 25.8, total CO2 27.3, oxygen saturation 94. PT 24.3, INR 2.18. Microbiology: Blood culture shows no growth after 24 hours. IMAGING STUDIES: The patient had a chest x-ray this morning which revealed right and left lung opacities. ASSESSMENT/PLAN: Ms. Turcios is a 76-year-old female with past medical history significant for congestive heart failure (CHF), coronary artery disease, hypertension, hyperlipidemia, chronic obstructive pulmonary disease (COPD) who presented to the emergency room due to confusion and hematochezia. The patient was found to be severely weak. She became more lethargic in the emergency department, was found to have INR of 3.0 with thrombocytopenia, acute kidney injury, hepatic encephalopathy with ammonia of 133. 1. Sepsis, most likely secondary to pneumonia. The patient is currently on vancomycin and Zosyn, should be renally dosed. Lactic acid level has improved. Not currently on any fluid secondary to CHF. 2. Acute encephalopathy, likely hepatic with ammonia level of 133 on admission. Mentation has diminished although ammonia level has improved down to 29. Will continue to monitor her mental status given her infection and multiorgan failure. ABG was done this morning and showed a pH of 7.32, pCO2 mildly elevated at 52. 3. GI bleed. The patient is currently on Protonix, avoid anticoagulants. She was coagulopathic possibly from liver disease with history of alcohol consumption. She received vitamin K and INR is down to 2.18. Dr. Varner was consulted and awaiting stabilization to perform endoscopy 4. Atrial fibrillation with rapid ventricular response. The patient continues to be tachycardic, but heart rate is better controlled. She is on metoprolol IV every [address] Morgan is currently following 5. Fluid overload with CHF. The patient had echocardiogram done which revealed ejection fraction (EF) around 65-70%. She had moderate aortic stenosis, mild mitral insufficiency, moderate tricuspid insufficiency, severe pulmonary hypertension, and small pericardial effusion. She is not being diuresed at this time. Will have to monitor volume status. 6. Acute kidney injury, likely multifactorial given her atrial fibrillation with rapid ventricular rate, CHF, sepsis, rhabdomyolysis, and possibly acute coronary syndrome. Dr. Stallworth is currently following 7. Polycythemia was likely secondary to COPD. Echocardiogram showed severe pulmonary hypertension. 8. Acute hypoxia requiring 8 liters of O2. Critical care has been consulted to assist with management. 9. Elevated troponins. Troponin peaked at 7.2. Cardiology is following. Rule out acute coronary syndrome. EKG this morning showed some T-wave abnormality with some mild depression. Patient likely has GI bleed which makes anticoagulation difficult. 10. Rhabdomyolysis. Given her fluid overload, she will not receive any more fluids. We appreciate Dr. Stallworth's assistance with management of fluids. 11. Transaminitis. The patient is also coagulopathic. She may very well have some liver disease secondary to her alcohol use. Sepsis may also be contributing to her transaminitis. DISPOSITION: The patient's prognosis is extremely poor. According to any of her wishes, she wanted to be DO NOT RESUSCITATE only if her condition was irreversible. Will need to address code status further given her multiorgan failure and poor prognosis. My preceptor for this patient encounter was Dr. Barrios. The preceptor was physically present in the building during the encounter and was fully available. As needed, all aspects of the patient interview, examination, medical decision making process, and medical care plan development were reviewed and approved by the preceptor. The preceptor is aware and concurs with the plan as stated in the body of this note and will attest to such by his/her cosignature.
[2016-11-03 12:53] LABS: ABG BASE EXCESS -3.3 (-2.0-2.0); ABG HCO3 22.6 MEQ/L (22.0-26.0); ABG PARTIAL PRESSURE CO2 43.6 mmHg (35.0-45.0); ABG PARTIAL PRESSURE O2 76.5 mmHg (75.0-100.0); ABG STANDARD HCO3 21.7 MEQ/L (22.0-26.0); ABG pH (ARTERIAL) 7.333 UNITS (7.350-7.450)
--- NOTE | 2016-11-03 14:08 | CCN ---
DATE OF SERVICE: 11/03/2016 I was called to evaluate this patient regarding multisystem organ failure. She was found with an altered level of consciousness at home. Problems identified since her admission to the hospital include encephalopathy, atrial fibrillation with rapid ventricular response, cardiogenic pulmonary edema, acute kidney injury, elevated CPK, gastrointestinal (GI) bleeding, coagulopathy, elevated white cell count, elevated hemoglobin, and thrombocytopenia. She has known severe atherosclerotic vascular disease. Has had carotid surgery performed with a presumptive diagnosis of obstructive airways disease based on multiple pack years of cigarette smoking. Was found to have pulmonary nodules on an outpatient evaluation. Has systemic arterial hypertension and a history of alcohol use. At bedside, she is tachycardiac, tachypneic. [place] coma scale at 10. Temperature 97, pulse rate 108, respirations 29, blood pressure 130/76. HEENT: Her pupils are responsive to light. Mucosa is dry. Jugular veins are 6-8 cm distended. Neck is supple without meningismus. Heart sounds are irregularly irregular. Breath sounds are coarse and diminished with rales. Abdomen is soft. No appreciable bowel sounds. Extremities: Show no pulses in the dorsalis pedis nor posterior tibial region with Doppler bilaterally. There is some edema, and her feet are cyanotic. DIAGNOSTIC STUDIES: Her white count is 19, hemoglobin 79, hematocrit 56.4, platelet count 49,000. Electrolytes are sodium 144, potassium 4.2, chloride 104, CO2 26, BUN 89, creatinine 2.6, glucose is 696, calcium is 7.3, bilirubin 3.3, AST 750, ALT 161, CPK 13,290, troponin is 7.17, albumin 2.5. An arterial blood gas performed at 7:46 this morning showed a pH of 7.31, pCO2 of 51, pO2 of 78 on supplemental oxygen. Urinalysis shows a pH of 5, specific gravity 1.01, 3+ blood, 22 white cells, 2+ bacteria, moderate sediment. Her myoglobin was positive. Urine sodium and creatinine are pending. On admission, ethanol level was 0.03. Chest x-ray shows marked cardiomegaly and interstitial prominence bilaterally. A complete pulmonary function study performed in June of this year showed a nonspecific flow rate reduction, normal lung volumes, and a severe diffusion impairment. Arterial blood gases performed in June of this year on room air showed a pH of 7.44, pCO2 40, pO2 69. The primary problem requiring critical attention is hypoxic respiratory failure secondary to cardiogenic pulmonary edema. Will initiate noninvasive positive pressure ventilation and recheck arterial blood gases. The patient's atrial fibrillation with rapid ventricular response has been rate controlled and is better. Atherosclerotic peripheral vascular disease. The patient has very poor perfusion to her feet, thus elevated CPK. She is not a surgical candidate. Coagulopathy secondary to congestive hepatopathy is improving, albeit slowly. Acute kidney injury secondary to reduced perfusion and elevated CPK. Will check a fractional excretion of sodium and urine myoglobin. Thrombocytopenia. The etiology is not entirely clear. Possibly, there may be some medication affecting the platelet count, as it has fallen since her admission. Gastrointestinal bleed. The etiology is not entirely clear. I suspect that this is active due to her coagulopathy. Pulmonary nodules. These were found small on imaging on an outpatient basis and stable. They are not pertinent to the current illness. Tobacco use disorder. The patient's pulmonary functions showed no obstruction, but she does respond to beta agonist, and these have been ordered. The patient's condition is quite critical. Prognosis is poor. I have discussed the case with the attending hospitalist and cardiology and will attempt to communicate with nephrology, as well. 1 hour and 57 minutes was spent in the provision of bedside critical care and coordination, exclusive of procedure time.
--- NOTE | 2016-11-03 15:47 | REP ---
REASON: Dyspnea and chest pain. Compared to the latest prior chest of 06/17/2011 a two view exam. The technique utilized in obtaining the radiograph has magnified the cardiac silhouette and accentuated the interstitial markings. There is global cardiomegaly accentuated by technique. There is a diffuse increase in the interstitial markings accentuated by technique. There is a suspected patchy opacity in the left lower lobe difficult to evaluate by technique. Global cardiomegaly, interstitial edema, and possible left lower lobe pneumonia correlate clinically. Signed by Larry Rodriguez DO 11/03/2016 05:16 P
--- NOTE | 2016-11-03 20:17 | ECGEPIP ---
Stationary ECG Study [facility] Test Date: 2016-11-03 Pat Name: JESSICA LEE Department: Room: [place] [address] Gender: F [employer] Technician: CANDICE : [id number] Requested By: Ana Rosa Morgan Order Number: [id number] Reading MD: Ana Rosa Morgan Measurements Intervals Beggs Rate: 116 P: CO: 0 QRS: 106 QRSD: 99 T: 269 QT: 308 QTc: 429 Interpretive Statements ATRIAL FIBRILLATION WITH RAPID VENTRICULAR RESPONSE R WAVE DELAYED PROGRESSION, CONSIDER ANTERIOR WALL TN OF INDETERMINED AGE LATERAL MYOCARDIAL INFARCTION, OF INDETERMINATE AGE ST DEVIATION AND MODERATE T-WAVE ABNORMALITY, CONSIDER ISCHEMIA SINCE 11/02/15 LATERAL Q WAVES ARE NEW AND STT ABNORMALITIES ARE MORE PRONOUNCED Electronically Signed On 11-03-2016 20:17:10 EDT by Ana Rosa Morgan
--- NOTE | 2016-11-03 21:25 | IPN ---
DATE: 11/03/2016 Mrs. Turcios is seen this morning on her bedside in intensive care unit. She remains poorly responsive. She is very confused, disoriented, and agitated. PHYSICAL EXAMINATION: Temperature 97.6 degrees Fahrenheit, heart rate 112 per minute, and respiratory rate 28 per minute. Blood pressure is 96/55 mm of mercury, and oxygen saturation 92% on 8 liters oxygen via high-flow cannula. Intake and output records from yesterday show total intake 700 and output 2506. Head is atraumatic. Neck is supple and jugular venous distention (JVD) is only moderate. Heart sounds are tachycardiac and irregular. Lungs have only moderate bilateral air entry with bibasilar crepitations. Abdomen remains tender and slightly distended. Extremities have cyanosis on her feet but hands are in mittens. Neurologically she remains poorly responsive and restless. Today's labs show WBC count 19.0, hemoglobin 17.9, hematocrit 56.4, platelets are 49,000. Chemistry showed sodium level 144 and potassium 4.2. BUN 89 and creatinine 2.63. Calcium level 7.3. Serum ammonia level is 29 this morning. CPK is 13,290 and troponin 7.17. Blood gas showed a pH of 7.31, pCO2 of 51.6, pO2 of 78, and bicarbonate 23.3. PROBLEMS: 1. Acute renal failure, probably superimposed on chronic kidney disease. Kidney function is without any significant change. The patient remains non-oliguric. 2. Congestive heart failure. Volume status is decompensated; however, she is hypotensive. At present I would recommend not to attempt to diurese her. 3. Pneumonia with hypotension. The patient remains on broad-spectrum antibiotics. I would suggest to stop vancomycin and monitor vancomycin level if we wish to continue it. 4. Rhabdomyolysis and acute myocardial infarction (DE). The patient has significantly elevated creatine phosphokinase (CPK), which is most likely not all related to her acute DE. Her troponin is also elevated. At present, IV fluid hydration is not recommended due to hypervolemia presence. Overall condition quite guarded, and her prognosis is guarded at present.
[2016-11-04] VITALS (14 sets, daily range): BP systolic 95–192; BP diastolic 46–86; O2SAT 95
[2016-11-04] MEDS: METOPROLOL 5 MG/5 ML VIAL IV SCH ×7 (02:16→12:01)
[2016-11-04] MEDS: IPRATROPIUM 0.02% SOLN 0.5MG/2.5 ML NEB INH SCH ×3 (04:00→11:23)
[2016-11-04] MEDS: LEVALBUTEROL 1.25 MG/0.5 ML CONCENTRATE NEB INH SCH ×3 (04:00→11:23)
[2016-11-04 06:30] LABS: ABG BASE EXCESS -4.6 (-2.0-2.0); ABG HCO3 21.6 MEQ/L (22.0-26.0); ABG PARTIAL PRESSURE CO2 43.5 mmHg (35.0-45.0); ABG PARTIAL PRESSURE O2 89.7 mmHg (75.0-100.0); ABG STANDARD HCO3 20.7 MEQ/L (22.0-26.0); ABG TOTAL CO2 22.9 MEQ/L (23.0-31.0); ABG pH (ARTERIAL) 7.313 UNITS (7.350-7.450)
[2016-11-04] MEDS: PIPERACILLIN/TAZOBACTAM SOD 3.375 GM in D5W MINI-BAG PLUS 50 ML IV SCH (06:32)
[2016-11-04 07:30] LABS: BASO % 0.1 % (0.0-1.0); EOS # 0.1 K/mm3 (0.0-0.50); EOS % 0.4 % (0.0-3.0); LARGE UNSTAINED CELL # 0.2 K/mm3 (0.0-0.4); LARGE UNSTAINED CELL % 1.2 % (0.0-4.0); LYMPH # 0.7 K/mm3 (1.5-4.5); LYMPH % 3.7 % (24.0-44.0); MEAN CORPUSCULAR HEMOGLOBIN 32.8 pg (27.0-33.0); MEAN CORPUSCULAR HGB CONC 30.9 g/dl (32.0-36.5); MEAN CORPUSCULAR VOLUME 106.1 fl (80.0-96.0); MONO # 0.7 K/mm3 (0.0-0.8); MONO % 3.6 % (0.0-5.0); NEUTROPHILS # 18.5 K/mm3 (1.8-7.7); RED CELL DISTRIBUTION WIDTH 15.3 % (11.5-14.5); WHITE BLOOD COUNT 20.3 K/mm3 (4.0-10.0)
[2016-11-04 07:31] LABS: PLATELET COUNT, AUTOMATED 36 k/mm3 (150-450)
[2016-11-04 07:39] LABS: INR 1.9
[2016-11-04 07:46] LABS: ALBUMIN 2.1 GM/DL (3.2-5.2); ALBUMIN/GLOBULIN RATIO 0.75 (1.00-1.93); BILIRUBIN,TOTAL 3.3 MG/DL (0.2-1.0); CALCIUM LEVEL 7.1 MG/DL (8.8-10.2); CREATININE FOR GFR 4.18 MG/DL (0.55-1.02); MAGNESIUM LEVEL 2.4 MG/DL (1.8-2.4); TOTAL PROTEIN 4.9 GM/DL (6.4-8.2)
[2016-11-04 07:56] LABS: POTASSIUM SERUM 5.5 MEQ/L (3.5-5.1)
[2016-11-04] MEDS: CHLORHEXIDINE GLUCONATE 0.12 % 15ML UDC (PERIDEX ORAL RINSE) MT SCH (08:04)
[2016-11-04] MEDS: PANTOPRAZOLE 40MG INJ (PROTONIX) (C9113) IV SCH (08:04)
[2016-11-04] MEDS: POTASSIUM CHLORIDE 10 MEQ SR TABLET PO SCH (08:06)
--- NOTE | 2016-11-04 10:09 | REP ---
PORTABLE CHEST: AP portable view of the chest is performed and compared to prior study of 11/03/2016. The heart appears enlarged. Right lung interstitial and alveolar opacities are unchanged. Diffuse left lung opacities appear improved in the upper lobe. IMPRESSION: Improved opacity in the left upper lobe. Otherwise no change. Signed by Trevor Larsen MD 11/04/2016 04:06 P
--- NOTE | 2016-11-04 10:34 | CCN ---
DATE OF SERVICE: 11/04/2016 The patient is seen in the intensive care unit on noninvasive positive pressure ventilation. Her respiratory efforts are more consistent. She remains encephalopathic. Temperature is 98.3, maximum temperature (Tmax) over the past 24 hours 101, pulse rate 99, respirations 26, blood pressure 114/49, somewhat variable. Intake and output (I and O) for the past 24 hours: 375 in and 403 out, since midnight, 50 mL in and 8 mL out. At bedside, she is ill-appearing, encephalopathic, with dystonic motions of her extremities. Right side appears less mobile than the left. She is not following commands. Does localize pain. Oral mucosa is pink. There is a noninvasive positive pressure mask in place. Neck is supple. Heart sounds somewhat distant and irregular. Breath sounds mildly diminished. Some scattered rales bilaterally. Air exchange is adequate. The volumes returned on the noninvasive positive pressure ventilator in the 300-350 range. Abdomen is soft. No palpable mass. Extremities are cold. Feet are bluish-blackish discolored. No pulse is appreciated in the dorsalis pedis or popliteal region. DIAGNOSTIC STUDIES: White cell count is 20, hemoglobin 16, hematocrit 52, platelet count 36,000, differential white cell count shows 91% neutrophils. Electrolytes are 144, potassium 5.5, chloride 105, CO2 23, BUN 114, creatinine 4.1, glucose 93, calcium is 7.1, bilirubin 3.3, AST is up to 777, ALT is up to 180. Her albumin is 2.1. Arterial blood gases show pH 7.31, pCO2 43, pO2 89. The urine myoglobin was positive. Urine creatinine 25, urine sodium 70. INR is down to 1.9. Fibrinogen is 194. IMAGING: Shows little change, a globular-shaped heart, bilateral infiltrates. On medication review, this is day #3 of Zosyn. The primary problem requiring critical attention is acute respiratory failure. Gas exchange is better with noninvasive positive pressure ventilation. Acute kidney injury. I suspect this is related to myoglobin or hypoperfusion. Nephrology is consulting, and we will discuss her case with them. Atrial fibrillation. She is now rate controlled. Blood pressure is borderline, somewhat variable. Coagulopathy. Her international normalized ratio (INR) is slowly decreasing. Thrombocytopenia, worse. Fibrinogen is low. Possibly consumptive coagulopathy. However, I am still suspicious that the vancomycin may have been causing part of this, and it has been stopped. Gastrointestinal (GI) bleed is minimal but active. No doubt related to the coagulopathy. She is too ill to investigate this. Atherosclerotic peripheral vascular disease. Poor to no perfusion in the lower extremities persists. Ulcer prophylaxis being addressed with Protonix. Ulcer prophylaxis is not much of an issue. She is coagulopathic. From an infectious disease standpoint, she is having fever and white cells. There may be a cellulitis on her right arm. She is empiric Zosyn. I have discussed the case with cardiology and primary hospitalist service. We will update the patient's family shortly. Her condition is very critical. Prognosis is poor given the multisystem organ dysfunction. 1 hour and 15 minutes was spent in the provision of bedside critical care and coordination.
[2016-11-04] MEDS ORDERED: LORazepam 2 MG/ML VIAL (J2060) IV STA (12:29)
[2016-11-04] MEDS ORDERED: AMIODARONE HCL 150 MG in APPROPRIATE DILUENT 1 EA IV STA (13:15)
--- NOTE | 2016-11-04 13:31 | IPN ---
DATE: 11/04/2016 Mrs. Turcios is seen this morning on her bedside in intensive care unit. She remains quite agitated and disoriented. She has been in atrial fibrillation with rapid ventricular rate. She also has been in renal failure and has become oliguric. Her altered mentation has persisted since admission and has not improved despite an improvement in the ammonia level. Dr. Way has discussed her case with me this morning and discussed about various options for dialysis, including hemodialysis and continuous veno-venous hemodialysis (CVVHD). On physical exam, temperature is 99.2 degrees Fahrenheit, heart rate 122 per minute and respiratory rate 32 per minute. Blood pressure 155/67 mmHg and oxygen saturation 94% on bilevel positive airway pressure (BiPAP). Intake and output records from yesterday show total intake 375 and output 403. Head is atraumatic. Neck is supple and she is moving spontaneously. She is quite restless and agitated in the bed. Heart sounds are irregular and tachycardiac. Lungs have moderate bilateral air entry with diminished breath sounds at bases. Abdomen is soft and there is generalized tenderness. Bowel sounds are hypoactive. Extremities have cyanosis on both lower extremities along with significant edema. There is no clubbing. Neurologically, she remains poorly responsive, agitated and unable to communicate. Today's labs show WBC count 20.3, hemoglobin 16.3 and hematocrit 52.8. Platelets are 36,000. Blood gas showed a pH of 7.31, pCO2 43.5, pO2 89.7 and bicarbonate 20.7. Sodium is 144 and potassium 5.5. Chloride 105, CO2 23, BUN 114 and creatinine 4.18. Calcium level 7.1, magnesium 2.4 and total bilirubin is 3.3. Most recent ammonia level is 21. Total protein 4.9 and albumin 2.1. PROBLEMS: 1. Acute renal failure superimposed on chronic kidney disease. Patient is now oliguric. Initially, she was hypotensive and rapid atrial fibrillation. Now her blood pressure is high and she still remains in atrial fibrillation. I have discussed with the patient's sons about her condition and prognosis. I have discussed with them at length about need for dialysis. We will consider to do CVVHD due to hemodynamic instability and generalized edema. Patient's son did consent for dialysis catheter placement. Her platelets are low and she will be given platelet transfusion before the central line placement. 2. Hyperkalemia. This is related to renal failure and will be corrected with hemodialysis. Patient will be started on CVVHD as soon as a central line gets placed. 3. Thrombocytopenia. This is most likely related to sepsis, and she will be given platelet transfusion today prior to procedure. 4. Hepatic encephalopathy with elevated liver enzymes. She remains encephalopathic, though her ammonia level has improved. 5. Rhabdomyolysis and acute myocardial infarction (VA). Her creatinine phosphokinase (CPK) level from today is still pending. She is not suitable for intravenous (IV) fluid hydration at present due to generalized edema and hypoxemia. We will try to correct her volume status with dialysis. I have discussed with all the physicians involved and with the patient's family. Prognosis remains guarded at best. 48 minutes of critical care time spent in her care on the bedside and the family.
[2016-11-04 14:17] LABS: ABG BASE EXCESS 17.8 (-2.0-2.0); ABG STANDARD HCO3 39.8 MEQ/L (22.0-26.0)
[2016-11-04 14:18] LABS: ABG pH (ARTERIAL) 7.131 UNITS (7.350-7.450)
[2016-11-04 14:19] LABS: ABG PARTIAL PRESSURE CO2 162.6 mmHg (35.0-45.0); ABG PARTIAL PRESSURE O2 26.7 mmHg (75.0-100.0)
[2016-11-04] MEDS ORDERED: DOPamine 400 MG/500 ML BAG IN D5W (800MCG/ML) (J1265) ONE (15:06)
[2016-11-04] MEDS ORDERED: CALCIUM CHLORIDE 10% 1 GM/10 ML SYR ONE (15:06)
[2016-11-04] MEDS ORDERED: AMIODARONE 150MG/3ML INJ (J0282) ONE (15:06)
[2016-11-04] MEDS ORDERED: SODIUM BICARBONATE 8.4% INJ 50 ML SYRINGE ONE (15:06)
[2016-11-04] MEDS ORDERED: ATROPINE SULF 1MG/10ML SYRINGE (J0461) ONE (15:06)
[2016-11-04] MEDS ORDERED: EPINEPHrine 1MG/10ML SYRINGE 1.5IN ONE (15:06)
--- NOTE | 2016-11-04 15:20 | CCN ---
DATE: 11/04/2016 CODE NOTE Patient became tachycardiac (atrial fibrillation with rapid ventricular response). Amiodarone was given and shortly thereafter cardiac rhythm deteriorated to ventricular tachycardia/ventricular fibrillation. Resuscitation immediately ensued. An endotracheal tube was placed in CPR was performed. Full ACLS protocol was followed for a period of time with only occasional brief intervals of perfusable palpable rhythm. Resuscitation was aggressively continued until the patient's family requested that that effort stop. The patient was declared at 02:08 p.m.
--- NOTE | 2016-11-04 16:58 | IPN ---
DATE: 11/04/2016 MAX cart called at 1345 for asystole. The patient was on bilevel positive airway pressure (BiPAP). Chest compression was started by nursing staff. Dr. Kaur was present for intubation. The patient was given epinephrine through periphery every three minutes. Subsequently, the patient was intubated. Endotracheal (ET) tube confirmed with bilateral breath sounds as well as capnography color change. Compression was held every two minutes to check for pulse and check rhythms. The patient's electrical rhythms have shown ventricular fibrillation. Subsequently, the patient was shocked. Amiodarone two doses was also given, 150 mg IV push two doses was given through periphery, calcium chloride 1 gram was given through periphery, bicarbonate 1 ampule was given through periphery. A pulse was able to be obtained briefly with narrow complex bradyarrhythmia. Atropine one dose was given. The patient subsequently went into ventricular fibrillation and the patient was shocked again. Towards around 20 minutes into the code, it was determined that the patient had significant vasculopathy. Subsequently, further medication was given through the patient's recently placed femoral Shiley for dialysis. Aware of patient's condition, such as liver failure, coagulation, hyperkalemia, renal failure, and cardiac arrhythmia, Dr. Morgan was also contacted during the code and recommended giving additional dose of amiodarone. Subsequently, 150 mg of amiodarone was given through the femoral Shiley as well as another gram of calcium chloride through femoral Shiley and another ampule of bicarbonate. Further epinephrine also has been given through the femoral Shiley. A total of 8 epinephrine pushes have been given. Family is present outside the intensive care unit (ICU) during the code, and at 1409, family has requested the code to be terminated given sustainable pulse has yet to be able to be obtained at this point. Compression was stopped and the patient continued to be in ventricular fibrillation with no palpable pulse. Subsequently, the patient is pronounced.
--- NOTE | 2016-11-04 17:33 | DSES ---
DATE OF ADMISSION: 11/01/2016 DATE OF DISCHARGE/EXPIRATION: 11/04/2016 CONSULTANTS: 1. Dr. Ana Rosa Morgan, cardiology. 2. Dr. Junior Stallworth, nephrology. 3. Dr. Jayro Way, pulmonary. DISCHARGE DIAGNOSES: 1. Sepsis. 2. Pneumonia with bilateral infiltrates. 3. Acute hepatic encephalopathy. 4. Atrial fibrillation with rapid ventricular rate. 5. Fluid overload with congestive heart failure (CHF). 6. Acute kidney injury. 7. Gastrointestinal (GI) bleed. 8. Rhabdomyolysis. 9. Elevated troponin. 10. Liver failure. 11. Coagulopathy. 12. Thrombocytopenia. 13. Acute renal failure, oliguric. 14. Acute hypoxic respiratory failure, requiring noninvasive ventilation. 15. Polycythemia. 16. Respiratory acidosis. 17. Hyperkalemia. 18. Uremia. 19. Hypocalcemia. 20. Electrolyte abnormalities. HOSPITAL COURSE: The patient presented with apparent weakness and altered mental status and hematochezia. On laboratory assessment it was found that she was in multiorgan failure. She was started on empiric antibiotic therapy for pneumonia. Her ammonia level was found to be elevated at 133 on admission which did improve during hospitalization. IV medication was given to help control her heart rate. Nephrotoxic medications were discontinued. Several consultants evaluated Ms. Turcios and her sons were contacted to make them aware of her grim prognosis. The sons wish that everything be done given her multiorgan failure. The patient seemed to be deteriorating as her oxygenation worsened and required her to be on noninvasive mechanical ventilation. Renal function worsened to where she was oliguric and the patient's son consented for dialysis catheter placement with possible dialysis. She received platelet transfusion for her low platelets. Medical management was in place to try to control her heart rate. Her troponin peaked at 7.2. A max cart was then called for asystole. Advanced cardiac life support (ACLS) protocol was followed. Please see critical care progress note and max cart progress note for further details. Code was continued until her sons request that the code be terminated. Please also refer to specialist progress notes for further details. LABORATORY DATA: This morning: WBC 20.3, hemoglobin 16.3, hematocrit 52.8, platelet count 36, sodium 144, potassium 5.5, chloride 105, carbon dioxide 23, anion gap 16, BUN 114, creatinine 4.18, GFR 11.0, fasting glucose 93, calcium 7.1, magnesium 2.4, total bilirubin 3.3, AST 777, ALT 180, ammonia 21, total protein 4.9, albumin 2.1, PT 21.9, INR 1.9, fibrinogen 194. DISPOSITION: The patient at 1409 hours. Sons were present at bedside immediately after the code. My preceptor for this patient encounter was Dr. Dominic Velasquez. The preceptor was physically present in the building during the encounter and was fully available. As needed, all aspects of the patient interview, examination, medical decision making process, and medical care plan development were reviewed and approved by the preceptor. The preceptor is aware and concurs with the plan as stated in the body of this note and will attest to such by her cosignature. CHRISTI
--- NOTE | 2016-11-04 23:14 | RO ---
DATE OF PROCEDURE: 11/04/2016 PREPROCEDURE DIAGNOSIS/INDICATIONS: Oliguric acute renal failure in this lady with multiorgan problems and septic shock. POSTPROCEDURE DIAGNOSIS: PROCEDURE: Right femoral vein hemodialysis catheter placement. SURGEON: Dr. Junior Stallworth LAW OFFICE ASSISTANT: ANESTHESIA: Informed consent obtained from the patient's son. The patient is unable to consent due to her altered mentation. DESCRIPTION OF PROCEDURE: Right groin area cleaned and prepped in usual sterile fashion. 1% lidocaine used for local anesthesia. Right femoral vein accessed with micropuncture technique and guidewire advanced without any difficulty. A small skin incision made at the site of guidewire and skin and soft tissues dilated with skin dilator. Double-lumen hemodialysis catheter placed over guidewire without any difficulty. Good venous blood return obtained from both ports. The patient tolerated the procedure very well. Loss of blood was only about 3 mL. Catheter sutured in site and orders for dialysis have already been written. [facility]OSPITALPrimitivo
--- NOTE | 2016-11-05 07:12 | IPN ---
DATE: 11/04/2016 Mrs. Turcios has remains in ICU and remains critically ill. Overnight she did not have any decompensation of respiratory failure with use of BiPAP but she remains somnolent and agitated at times. There is no meaningful communication possible. Her vital signs: Blood pressure this morning was documented at 132/60, heart rate has been in 90s and low 100s. She did have some elevated temperature last night at 100.6. Saturation is low to mid 90s on BiPAP and 60% FiO2. She unfortunately, became oliguric. There is virtually no urine production since midnight. Weight is documented at 61.6. On my examination she is in the ICU bed. She has a BiPAP on. She is thrashing her upper extremities at times. Does not open her eyes. Pupils are reactive though. Her jugular venous pulse is difficult to assess. It does not look high on my exam. Lung sounds are though relatively clear on the right, somewhat less clear on the left. I do not appreciate any wheezing. There are very fine crackles. Heart exam reveals irregular rhythm and somewhat muffled heart sounds but a murmur is unchanged and I do not appreciate gallop or rub. Abdomen is soft. It appears that she has some painful grimacing when palpating in the right upper quadrant. No guarding though. Lower extremities have mottled appearance. They are cold to touch and cyanotic. LABORATORY: Her INR this morning is 1.9. CBC reveals WBC count 20,000, hemoglobin 16, hematocrit 52 and platelet count 36,000. Basic metabolic panel this morning is still pending and her ABGs reveal pH 7.3, pCO2 43, pO2 89, saturation 96%. Chest x-ray reveals worsening of mostly left-sided infiltrate and likely fluid retention. ASSESSMENT/PLAN: Mrs. Turcios remains very complicated. She is a 76-year-old female who had known vascular disease and some component of lung disease prior to admission but was quite functional until a few days ago. She presented with multiorgan failure with altered mental status, atrial fibrillation, non-STEMI, liver failure, renal failure, rhabdomyolysis. I am not finding any clear-cut unifying process. We had a long discussion with Dr. Way trying to analyze the situation. I do not share the opinion that the cardiac event was the principal cause. I suspect that she has some systemic disease that affects numerous organs. Most pressing issues now are acute renal failure and thrombocytopenia and I suspect that the underlying rhabdomyolysis is probably the leading problem here. I do not have any other explanation. The ID cause seems less likely as she was not febrile on presentation and blood cultures so far have been negative. Also even though she undoubtedly had coronary event it would not explained the whole picture. At this point, we will continue supportive management. As far as the atrial fibrillation is concerned, she has been receiving as needed dosing of metoprolol which will continue. I decided to repeat quick echo mostly to assess the size of pericardial effusion. Even if it should be increasing, unfortunately, I think it would be challenging to intervene on it because of her coagulopathy and thrombocytopenia. As far as the coronary syndrome is concerned, she has preserved LV systolic function on presentation and I do not believe that there is any consideration of coronary angiogram in this setting. The remaining issue remain with nephrology and critical and primary teams. Her prognosis, in my opinion, is deteriorating and is critical and I am afraid that more likely than not she will not survive this presentation. We had a long discussion with her son. I spent a total of 50 minutes with the patient organizing care and communicating with family. CHRISTI
--- NOTE | 2016-11-05 07:57 | ECHO ---
DATE OF PROCEDURE: 11/04/2016 REFERRING PHYSICIAN: Dr. Natasha Barrios INDICATION: Pericardial effusion, atrial fibrillation. Patient measures 155 cm and weighs 62 kg. DIMENSIONS: IVS: 1.6 LV: 2.9 LVPW: 1.8 LA: 4.0 Aorta: 2.8 Ascending aorta: 2.6 FINDINGS: The study is of acceptable technical quality. Left ventricle is normal size and hyperdynamic contractility with estimated ejection fraction (EF) around 70%. Moderate left ventricular hypertrophy (LVH) is noted. Right ventricle does not appear grossly enlarged. Both atria are severely enlarged. Aortic valve is heavily calcific, but there is some separation of leaflets. By 2D imaging, I assume about moderate aortic stenosis. There are heavy degenerative abnormalities of mitral valve with mitral annular calcifications. There are normal tricuspid and normal pulmonic valves. Small to moderate sized noncompressive pericardial effusion is noted. Aortic root appears normal. Aortic arch and abdominal aorta were not well seen. Doppler interrogation reveals trace pulmonic insufficiency. Remaining cardiac valves were not appropriately interrogated because, unfortunately, patient went into cardiac arrest during the performance of the study and it had to be terminated. CONCLUSIONS: 1. Limited study. 2. Principally only two-dimensional imaging was performed with limited Doppler evaluation. 3. Normal left ventricle (LV) size with moderate LVH and hyperdynamic LV systolic function. 4. Heavily sclerotic aortic valve. 5. Degenerative abnormalities of mitral valve. 6. Small to moderate sized pericardial effusion. 7. Cannot completely rule out vegetations on either aortic or mitral valve. MTDD
== END 2016-11-04 14:09 | disposition expired | DRG 871 ==
LOC: EDBD 18:09 → M ED 19:13 → M ED INP 23:10 → M ICU 11-02 00:05
PROVIDERS: ADMIT Internal Medicine Nephrology; ATTEND Internal Medicine
PROC: 05HY33Z Insertion of Infusion Device into Upper Vein, Percutaneous Approach (ICD-10-PCS; principal; 2016-11-04)
DX: A41.9 Sepsis, unspecified organism (principal); J18.9 Pneumonia, unspecified organism; J96.91 Respiratory failure, unspecified with hypoxia; G93.41 Metabolic encephalopathy; I21.3 ST elevation (STEMI) myocardial infarction of unspecified site; E87.2 Acidosis; N17.9 Acute kidney failure, unspecified; K92.2 Gastrointestinal hemorrhage, unspecified; M62.82 Rhabdomyolysis; D68.9 Coagulation defect, unspecified; K92.1 Melena; Z66 Do not resuscitate; R65.20 Severe sepsis without septic shock; D75.1 Secondary polycythemia; I49.01 Ventricular fibrillation; K72.90 Hepatic failure, unspecified without coma; I48.91 Unspecified atrial fibrillation; D69.6 Thrombocytopenia, unspecified; E87.5 Hyperkalemia; E83.51 Hypocalcemia; Z79.899 Other long term (current) drug therapy; I50.9 Heart failure, unspecified; J44.9 Chronic obstructive pulmonary disease, unspecified; E78.5 Hyperlipidemia, unspecified; I25.10 Atherosclerotic heart disease of native coronary artery without angina pectoris; I35.0 Nonrheumatic aortic (valve) stenosis; R91.8 Other nonspecific abnormal finding of lung field; E83.42 Hypomagnesemia